=== PATIENT | male | born 2000 | race African-American/Black ===

== ENCOUNTER 2022-01-25 15:41 | Emergency (ER) | payer MEDICAID ==
[~2022-01-25] VITALS: Ht 180.3 cm; Wt 60.0 kg
[2022-01-25 15:46] VITALS: BP 123/46
== END 2022-01-25 18:23 | disposition left against medical advice (07) ==
LOC: ER 15:54
DX: Z53.21 Procedure and treatment not carried out due to patient leaving prior to being seen by health care provider (principal)

== ENCOUNTER 2024-07-25 21:16 | Emergency (ER) | payer MEDICAID ==
[~2024-07-25] VITALS: Ht 177.8 cm; Wt 59.0 kg
[2024-07-25 21:25] VITALS: TEMP 98.4; O2SAT 99
[2024-07-25] MEDS ORDERED: DOXY100T2 MT (23:52)
[2024-07-26 00:46] VITALS: BP 109/71; PULSE 67; RESP 16; O2SAT 97
[2024-07-26] MEDS: CEFTRIAXONE SODIUM 500MG VIAL IM ONE (00:47)
[2024-07-26] MEDS: LIDOCAINE HCL 1% 20ML VIAL INFIL ONE (00:47)
== END 2024-07-26 00:55 | disposition home or self-care (01) ==
LOC: ER 21:16
DX: A64 Unspecified sexually transmitted disease (principal); J45.909 Unspecified asthma, uncomplicated
CPT/HCPCS: 99283; 86592; 96372; J0696; J3490

== ENCOUNTER 2025-10-17 22:34 | Emergency (ER) | payer MEDICAID ==
[~2025-10-17] VITALS: Ht 177.8 cm; Wt 63.4 kg
[~2025-10-17 22:34] MED LIST: DOXY100T2 MT
[2025-10-17 22:51] VITALS: O2SAT 100
[2025-10-18 00:10] LABS: BASOPHILS % 0.8 % (0.0-2.0); EOSINOPHILS % 1.4 % (0.0-5.0); HEMATOCRIT. 44.6 % (42.0-52.0); HEMOGLOBIN. 14.9 g/dL (14.0-18.0); LYMPHOCYTES % 19.3 % (20.0-50.0); MEAN PLATELET VOLUME 8.1 fl (7.4-10.4); MONOCYTES % 6.2 % (2.0-8.0); NEUTROPHILS % 72.3 % (40.0-76.0); PLATELET 232 x1000/uL (130-400); RED BLOOD CELL COUNT 4.75 mill/uL (4.7-6.1); RED CELL DISTRIBUTION WIDTH 13.3 % (11.6-14.6)
[2025-10-18 00:16] VITALS: TEMP 36.5
[2025-10-18 00:23] LABS: CREATININE 1.0 mg/dL (0.6-1.3); UREA NITROGEN BLOOD 9 mg/dL (9-23)
[2025-10-18] MEDS: MORPHINE SULFATE 4 MG/ML INJ (FOR IV/IM USE) IV ONE (00:41)
[2025-10-18] MEDS: SODIUM CHLORIDE 0.9% 1,000 ML IV ONE (00:41)
[2025-10-18] MEDS: ONDANSETRON HCL 4MG/2ML INJ IV ONE (00:41)
[2025-10-18 01:17] LABS: INR 1.1
[2025-10-18] MEDS ORDERED: IBUP-1523 MT (01:26)
[2025-10-18] MEDS ORDERED: ONDA4TAB50 MT (01:26)
[2025-10-18 01:38] VITALS: BP 120/85; PULSE 87; RESP 14; O2SAT 100
[2025-10-18 01:39] LABS: CLARITY URINE TURBID (CLEAR); COLOR URINE YELLOW (YELLOW); GLUCOSE URINE NEGATIVE (NEGATIVE); KETONES URINE 3+ (NEGATIVE); LEUKOCYTE ESTERASE URINE TRACE (NEGATIVE); NITRITE URINE NEGATIVE (NEGATIVE); OCCULT BLOOD URINE NEGATIVE (NEGATIVE); PH URINE 8.0 (4.5-8.0); PROTEIN URINE 1+ (NEGATIVE); SPECIFIC GRAVITY URINE 1.028 (1.005-1.030); UROBILINOGEN URINE 1.0 E.U./dL (0.2-1.0)
[2025-10-18 03:53] LABS: RBC URINE NONE SEEN /hpf (0-2); SQUAMOUS EPITHELIAL CELL URINE NONE SEEN /lpf (RARE/1+)
[2025-10-18 03:54] LABS: AMORPHOUS SEDIMENT URINE 2+ /lpf; BACTERIA URINE 2+
== END 2025-10-18 01:39 | disposition home or self-care (01) ==
LOC: ER 22:34
DX: N44.00 Torsion of testis, unspecified (principal); J45.909 Unspecified asthma, uncomplicated; Z79.899 Other long term (current) drug therapy
CPT/HCPCS: 80048; 85025; 36415; 93976 ×2; 76870 ×2; 99291; 81003; 85610; 85730; 96361; 96374; 96375; J2405; J2270; J7030; Z7610 ×2